=== PATIENT | male | born 1995 ===

== ENCOUNTER 2016-11-06 02:56 | Emergency (ER) | payer OTHER ==
[~2016-11-06] VITALS: Ht 177.8 cm; Wt 75.0 kg
[2016-11-06 03:01] VITALS: Ht 177.8 cm; Wt 75.0 kg
--- NOTE | 2016-11-06 03:16 | ERD ---
ER Documentation Chief Complaint Date/Time DATE: 11/06/16 TIME: 03:14 Chief Complaint right foot pain, sptrip and fall 2 days ago-seen at [facility] same c/o HPI 21-year-old male presents here in emergency department for complaint of right foot pain after tripping and falling 2 days ago, was seen at another emergency department, had an x-ray done, was told to have a fracture of the foot, had splint done, patient states that the cast splint was withdrawn, he took it out himself, was walking on it, the pain got worse afterwards. Patient described the pain as throbbing pain, 6/10 scale, is worse upon movement accompanied with swelling. Patient did not take any medications of symptoms. Patient denies any numbness or tingling. Patient denies any fever or chills. ROS All systems reviewed and are negative except as per history of present illness. Medications Home Meds Reported Medications [None] Unknown Strength No Conflict Check 11/06/16 Allergies Allergies: Coded Allergies: No Known Allergy (Unverified , 11/06/16) PMhx/Soc Medical and Surgical Hx: pt denies Medical Hx, pt denies Surgical Hx History of Surgery: No Anesthesia Reaction: No Hx Neurological Disorder: No Hx Respiratory Disorders: No Hx Cardiac Disorders: No Hx Psychiatric Problems: No Hx Miscellaneous Medical Probl: No Hx Alcohol Use: Yes Hx Substance Use: No Smoking Status: Light tobacco smoker FmHx Family History: No coronary disease, No diabetes, No other Physical Exam Vitals Vital Signs Date Time Temp Pulse Resp B/P Pulse Ox O2 Delivery O2 Flow Rate FiO2 11/06/16 03:01 98.2 110 20 142/67 98 Physical Exam GENERAL: The patient is well developed and appropriate for usual state of health, in no apparent distress. CHEST: Clear to auscultation bilaterally. There are no rales, wheezes or rhonchi. HEART: Regular rate and rhythm. No murmurs, clicks, rubs or gallops. No S3 or S4. ABDOMEN: Soft, nontender and nondistended. Good bowel sounds. No rebound or guarding. No gross peritonitis. No gross organomegaly or masses. No Reynaga sign or McBurney point tenderness. BACK: No midline or flank tenderness. EXTREMITIES: Noted swelling and tenderness on palpation on the dorsal aspect of the right foot, able to do full range of motion of right ankle without any restriction, able to do full range of motion of the toes of the right foot without any restriction. Good capillary refill of the affected foot. Equal pulses bilaterally. Full range of motion of other joint of the body. Grossly neurovascularly intact. NEURO: Alert and oriented. Cranial nerves 2-12 intact. Motor strength in all 4 extremities with 5/5 strength. Sensation grossly intact. Normal speech and gait. SKIN: There is no apparent rash or petechia. The skin is warm and dry. HEMATOLOGIC AND LYMPHATIC: There is no evidence of excessive bruising or lymphedema. No gross cervical, axillary, or inguinal lymphadenopathy. Results 24 hrs PROCEDURE: XR Foot. CLINICAL INDICATION: R FOOT PAIN TECHNIQUE: 3 views of the right foot were obtained. COMPARISON: None. FINDINGS: There is fracture - dislocation through the tarsometatarsal joints with anterior displacement of at least the proximal end of 1 metatarsal on the lateral view. This is likely the second metatarsal. Bony fragments are seen anterior to the middle and medial cuneiform is with gross disruption widening of the space between the tarsals and the base of the first metatarsal. The metatarsals are laterally displaced relative to the tarsals. A curvilinear fracture fragment is seen between the proximal aspect of the second and third metatarsals, perhaps arising from the second metatarsal. Widening of the space between the proximal aspect of the second and third metatarsals is seen. IMPRESSION: Fracture - dislocation through the tarsometatarsal joints with bony fragments and displacement as described. RPTAT: [facility] Physician Gallito Date Time Electronically viewed and signed by Physician Gallito on 11/06/2016 05 :01 LE/ After receiving patients xray report, a posterior short-leg splint was applied on the patients right lower leg. After application of the splint, patient has intact sensation and circulation on distal area of the affected joint. Patient does not complain of numbness or tingling after application of the splint. Patient tolerated procedure well. Crutches was given to use afterwards. Patient was given a copy of the CD and the x-ray report Procedures/MDM Medical Decision Making: Patient's pain is most likely consistent with a fracture or dislocation is seen in the right foot, most likely got worst from removing the splint. There is no suspicion for neurovascular compromise. Patient has intact sensation and circulation of the affected extremity. There is low suspicion for septic arthritis. Patient does not have any fever. Disposition: Home. Patient is given prescription for ibuprofen for pain, tramadol for severe pain. Patient was advised to elevate the affected area and apply ice on affected area. Patient was advised that if symptoms are worse, numbness, tingling, high fever, unable to move joint, worsening symptoms, to return to emergency department immediately. Otherwise, patient is advised to follow up with the primary care doctor in 5-7 days for reevaluation of symptoms. Patient is advised to see orthopedic doctor 3-5 days for reevaluation of symptoms and management. Patient was advised to use the crutches as prescribed. Departure Diagnosis: Primary Impression: Closed fracture dislocation foot Encounter type: initial encounter Laterality: right Qualified Code: S92.901A - Closed fracture dislocation foot, right, initial encounter Condition: Stable Patient Instructions: Fracture, Foot Additional Instructions: Patient is given prescription for ibuprofen for pain, tramadol for severe pain. Patient was advised to elevate the affected area and apply ice on affected area. Patient was advised that if symptoms are worse, numbness, tingling, high fever, unable to move joint, worsening symptoms, to return to emergency department immediately. Otherwise, patient is advised to follow up with the primary care doctor in 5-7 days for reevaluation of symptoms. Patient is advised to see orthopedic doctor 3-5 days for reevaluation of symptoms and management. Patient was advised to use the crutches as prescribed. WESLEY MARR NP Nov 06, 2016 03:16
--- NOTE | 2016-11-06 05:01 | RADRPT ---
PROCEDURE: XR Foot. CLINICAL INDICATION: R FOOT PAIN TECHNIQUE: 3 views of the right foot were obtained. COMPARISON: None. FINDINGS: There is fracture - dislocation through the tarsometatarsal joints with anterior displacement of at least the proximal end of 1 metatarsal on the lateral view. This is likely the second metatarsal. Bony fragments are seen anterior to the middle and medial cuneiform is with gross disruption widenin g of the space between the tarsals and the base of the first metatarsal. The metatarsals are latera lly displaced relative to the tarsals. A curvilinear fracture fragment is seen between the proximal aspect of the second and third metatarsals, perhaps arising from the second metatarsal. Widening o f the space between the proximal aspect of the second and third metatarsals is seen. IMPRESSION: Fracture - dislocation through the tarsometatarsal joints with bony fragments and displacement as de scribed. RPTAT: [facility] Physician Gallito Date Time Electronically viewed and signed by Physician Gallito on 11/06/2016 05:01 TENA/
[2016-11-06] MEDS ORDERED: IBUP-1542 PO (05:09)
[2016-11-06] MEDS ORDERED: TRAM50TA2 PO (05:09)
== END 2016-11-06 05:34 | disposition home or self-care (01) ==
LOC: FTE 02:56
DX: S92.901A Unspecified fracture of right foot, initial encounter for closed fracture (principal); F17.210 Nicotine dependence, cigarettes, uncomplicated; W01.0XXA Fall on same level from slipping, tripping and stumbling without subsequent striking against object, initial encounter; Y92.9 Unspecified place or not applicable
CPT/HCPCS: 29515; 73630; Z7502